=== PATIENT | female | born 1985 | race Two or more races ===

== ENCOUNTER 2021-05-03 23:28 | Emergency (ER) | payer SELFPAY ==
[2021-05-03 23:39] VITALS: BP 104/74; PULSE 64; TEMP 97.5; BMI 22.8
[2021-05-04 01:08] LABS: BASO % 0.4 % (0-2.0); EOS % 0.3 % (0-4.5); HEMOGLOBIN 11.9 GM/dL (10.7-15.3); MCH 28.9 pg (25.7-33.7); MCHC 33.1 g/dl (32.0-36.0); MEAN CELL VOLUME 87.4 fl (80-96); MEAN PLT VOLUME 8.3 fl (7.5-11.1); MONO % 2.9 % (3.8-10.2); NEUT % 83.4 % (42.8-82.8); PLATELET COUNT 335 10^3/uL (134-434); RBC 4.12 M/mm3 (3.60-5.2); RDW 13.3 % (11.6-15.6); WHITE BLOOD COUNT 13.4 K/mm3 (4.0-10.0)
[2021-05-04 01:48] LABS: LACTIC ACID 2.6 mmol/L (0.4-2.0)
[2021-05-04] MEDS ORDERED: SODIUM CHLORIDE 0.9% 500 ML INFUS.BAG IV ONE (01:48)
[2021-05-04] MEDS ORDERED: CHOLECALCIFEROL (VIT D3) 5000 UNITS (125 MCG) CAP PO SCH (10:00)
== END 2021-05-04 03:45 | disposition home or self-care (01) ==
LOC: JER 23:28
DX: F33.0 Major depressive disorder, recurrent, mild (principal); B35.2 Tinea manuum; B35.3 Tinea pedis; B35.1 Tinea unguium
CPT/HCPCS: 36415; 83605; 84703; 85025; 99284-25